=== PATIENT | male | born 1985 ===

== ENCOUNTER 2023-04-13 11:09 | Outpatient (REF) | payer MEDICAID, SELFPAY ==
[2023-04-13 14:58] LABS: Anion Gap 12 (12-20); Blood Urea Nitrogen 10 mg/dL (9-16); Calcium 9.6 mg/dL (8.4-10.2); Carbon Dioxide 25 mmol/L (22-29); Chloride 107 mmol/L (96-108); Estimated Glomerular Filt Rate > 60; Glucose Random 87 mg/dL (60-115); Potassium 4.4 mmol/L (3.3-5.1); Sodium 140 mmol/L (135-145)
== END 2023-04-13 11:10 | disposition home or self-care (01) ==
LOC: HO.HHCL 11:09
PROVIDERS: Visit Provider Internal Medicine Geriatric Medicine
DX: M89.8X8 Other specified disorders of bone, other site (principal); R51.9 Headache, unspecified; G89.29 Other chronic pain
CPT/HCPCS: 36415; 80048

== ENCOUNTER 2023-04-29 01:29 | Emergency (ER) | payer MEDICAID, SELFPAY ==
[2023-04-29 01:46] VITALS: BP 137/80; PULSE 85; RESP 16; TEMP 37.1; O2SAT 97; BMI 34.5
[2023-04-29 03:08] VITALS: BP 144/96; PULSE 71; RESP 16; TEMP 36.8; O2SAT 98
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
[2023-04-29 03:33] LABS: Appearance Urine Clear; Color Urine Yellow; Glucose Urine UA Negative (Negative); Leukocyte Esterase Urine Negative (Negative); Nitrite Urine Negative (Negative); PH 6.5 (5.0-9.0); UMIC TRIGGER UACC YES; Urine Blood Trace (Negative); Urine Ketones Trace mg/dL (Negative); Urine Protein Negative (Neg-Trace)
--- NOTE | 2023-04-29 03:34 | MHC.EDTECH ---
this pct just assumed care of pt vitals sign taken ,rsv/flu/covid swab collected and sent to lab ,
[2023-04-29 03:38] LABS: Bacteria Urine None Seen (None Seen); Hyaline Casts Urine 0-2 /LPF (0-2); Squamous Epithelial Cell Urine 0-2 /HPF (0-2); WBC Urine 0-5 /HPF (0-5)
[2023-04-29 04:17] LABS: Influenza A PCR NEGATIVE (Negative); Influenza B PCR NEGATIVE (Negative); Resp Syncy Virus RNA Qual PCR NEGATIVE (Negative); SARS COV2 PCR INHOUSE NEGATIVE (Negative)
[2023-04-29 04:36] VITALS: BP 157/96; PULSE 74; RESP 16; TEMP 36.3; O2SAT 98
[2023-04-29] MEDS: Amoxicillin/Potassium Clav 875 MG TABLET PO (04:41)
[2023-04-29] MEDS: Butalb/Acetamin/Caff 50/325/40 TABLET 1 TAB PO (04:41)
[2023-04-29 09:32] LABS: CT PCR NOT DETECTED (Not Detect.); NG PCR NOT DETECTED (Not Detect.)
== END 2023-04-29 04:54 | disposition home or self-care (01) ==
PROVIDERS: Emergency Provider Internal Medicine
DX: R51.9 Headache, unspecified (principal); R30.0 Dysuria; J32.9 Chronic sinusitis, unspecified; Z20.822 Contact with and (suspected) exposure to COVID-19; Z20.828 Contact with and (suspected) exposure to other viral communicable diseases
CPT/HCPCS: 0241U; 0353U; 81001; 99283

== ENCOUNTER 2023-06-23 08:47 | Outpatient (REF) | payer MEDICAID, SELFPAY ==
--- NOTE | ~2023-06-23 | CT_ITS ---
EXAMINATION: CT HEAD WITH CONTRAST CLINICAL INFORMATION: Mass growing on top of skull. Daily headaches. COMPARISON: None. TECHNIQUE: Contiguous axial imaging was performed from the skullbase to vertex following the intravenous administration of 85 mL Omnipaque 350. This CT examination was performed using dose optimization techniques as appropriate, variously including the following: *Automated exposure control *Adjustment of mA and/or kV according to patient size (this includes techniques or standardized protocols for targeted exams where dose is matched to indication/reason for exam; i.e. extremities or head) *Use of iterative reconstruction technique DLP: 1030 mGy-cm. FINDINGS: At the site of a presumed palpable mass in the midline vertex of the head, there is an encapsulated fatty mass measuring 3 cm TV by 0.6 cm CC by 2.9 cm AP. No enhancing soft tissue component is seen within the lesion. The underlying calvarium is normal. There is no evidence of acute intracranial hemorrhage or territorial infarction. No abnormal mass effect or midline shift is seen. Hogan to white matter differentiation is well preserved. No extra-axial fluid collections are identified. There is no abnormal enhancement. The ventricles are normal in size. There is no abnormal attenuation within the brain parenchyma. The osseous structures are normal. The mastoid air cells and visualized portions of the paranasal sinuses are well aerated. CT/CT head/brain w IV con IMPRESSION: No acute intracranial pathology. Approximate 3 x 0.6 x 2.9 cm encapsulated fatty lesion at the midline vertex in the scalp soft tissues, most indicative for benign lipoma. If the lesion continues to increase in size or pain develops at this site, further workup would be indicated on clinical basis.
[2023-06-23] MEDS: iohexoL 350 MG/ML 100 ML INFUS..BTL IV (10:17)
== END 2023-06-23 08:48 | disposition home or self-care (01) ==
LOC: HO.CT 08:47
PROVIDERS: Visit Provider Internal Medicine Geriatric Medicine
DX: M89.8X8 Other specified disorders of bone, other site (principal)
CPT/HCPCS: 70460; Q9967

== ENCOUNTER 2023-09-23 01:48 | Emergency (ER) | payer OTHER, SELFPAY ==
--- NOTE | ~2023-09-23 | XR_ITS ---
EXAMINATION: XR CHEST CLINICAL INFORMATION: Chest pain. COMPARISON: None available. TECHNIQUE: Frontal view of the chest was obtained. FINDINGS: No significant abnormality is noted involving the heart, lungs, mediastinum, bony thorax or soft tissues. XR/XR chest 1V IMPRESSION: Unremarkable examination.
--- NOTE | 2023-09-23 01:52 | ECG_ITS ---
Test Reason : CP Blood Pressure : / mmHG Vent. Rate : 088 BPM Atrial Rate : 088 BPM P-R Int : 154 ms QRS Dur : 084 ms QT Int : 324 ms P-R-T Axes : 044 -13 016 degrees QTc Int : 392 ms Normal sinus rhythm Normal ECG No previous ECGs available Referred By: Anette Joiner Electronically Signed By:NICOLE CANTU
[2023-09-23 01:53] VITALS: BP 135/76; PULSE 96; RESP 18; TEMP 36.8; O2SAT 96; BMI 36.9
[2023-09-23 02:14] LABS: Basophils Percent Auto 0.3 % (0-2); Eosinophils Absolute Auto 0.1 X10*3/uL (0.0-0.4); Eosinophils Percent Auto 0.7 % (0-4); Hematocrit 42.8 % (42.0-52.0); Hemoglobin 14.2 g/dl (14.0-18.0); Imm Gran Pct Auto 0.9 % (0.0-0.4); Lymphocytes Absolute Auto 3.3 X10*3/uL (1.2-4.9); Lymphocytes Percent Auto 28.2 % (20-40); MANUAL DIFF FLAG NO; Mean Corpuscular HGB Conc 33.2 g/dl (31.0-36.0); Mean Corpuscular Volume 87.5 fL (80.0-98.0); Mean Platelet Volume 9.7 fL (9.4-12.4); Monocytes Absolute Auto 0.8 X10*3/uL (0.1-1.2); Monocytes Percent Auto 7.2 % (2-11); Neutrophils Absolute Auto 7.3 x10*3/uL (2.0-8.3); Neutrophils Percent Auto 62.7 % (45-73); Platelet Count 265 X10*3/uL (160-400); Red Blood Count 4.89 X10*6/uL (4.60-5.80); Red Cell Distribution Width 14.5 % (11.0-16.0); White Blood Count 11.7 X10*3/uL (4.8-10.8)
[2023-09-23 02:30] LABS: Alanine Aminotransferase 23 U/L (0-40); Albumin Level 4.4 g/dL (3.5-5.0); Alkaline Phosphatase 76 U/L (39-117); Anion Gap 15 (12-20); Aspartate Amino Transferase 18 U/L (5-37); Bilirubin Direct 0.1 mg/dL (0.0-0.5); Bilirubin Total 0.5 mg/dL (0.0-1.0); Blood Urea Nitrogen 10 mg/dL (9-16); Calcium 10.1 mg/dL (8.4-10.2); Carbon Dioxide 25 mmol/L (22-29); Chloride 106 mmol/L (96-108); Creatinine Clr Calc Pharmacy 132.3; Estimated Glomerular Filt Rate > 60; Glucose Random 89 mg/dL (60-115); Sodium 142 mmol/L (135-145); Total Protein 8.1 g/dL (6.5-8.0)
[2023-09-23 02:37] LABS: Troponin-I High Sensitivity 4.8 ng/L (<3.5-35.0)
[2023-09-23 02:52] VITALS: BP 140/80; PULSE 92; RESP 18; TEMP 36.9; O2SAT 98
[2023-09-23 03:44] LABS: Ethanol < 10 mg/dL
--- NOTE | 2023-09-23 05:55 | ED_ITS ---
HPI - Psych General Chief Complaint: Psychiatric Symptoms Stated Complaint: chest pain, diabetic, ran out of meds Time Seen by Provider: 09/23/23 05:49 Source: patient Mode of arrival: ambulatory Limitations: no limitations History of Present Illness HPI Narrative: Patient comes to the emergency room complaining of 3 days of chest pressure and cough. Denies chest pain, abdominal pain, nausea vomiting diarrhea or fever. However, the main reason the patient came to the emergency room today is because he is feeling suicidal, states that he has been contemplating hanging himself. Patient states he takes medications for anxiety and depression as prescribed. Patient denies hurting himself prior to arrival, denies HI Related Data Home Medications Medication Instructions Recorded Confirmed albuterol sulfate 90 mcg/actuation 2 puff inhalation Q6H PRN wheezing 09/23/23 09/23/23 aerosol inhaler (Ventolin HFA) clonazepam 1 mg tablet 1 mg PO BID PRN Anxiety 09/23/23 09/23/23 enalapril maleate 10 mg tablet 10 mg PO QAM 09/23/23 09/23/23 phenytoin sodium extended 100 mg 100 mg PO TID 09/23/23 09/23/23 capsule quetiapine 200 mg tablet 200 mg PO BEDTIME 09/23/23 09/23/23 Allergies Allergy/AdvReac Type Severity Reaction Status Date / Time No Known Allergies Allergy Verified 09/23/23 01:53 Review of Systems 2 Review of Systems: Constitutional : No Weight loss, No Fever, No Chills, No Night Sweats, No Fatigue, No Malaise ENT/Mouth : No Hearing loss, No Ear Pain, No Nasal Congestion, No Sinus Pain, No Hoarseness, No sore throat, No Rhinorrhea, No Swallowing Difficulty Eyes: No Eye Pain, No Swelling, No Redness, No Foreign Body, No Discharge, No Vision Changes Cardiovascular : Complaining of chest pressure for 3 days, no pain, No SOB, No Dyspnea on Exertion, No Orthopnea, No Edema, No Palpitations Respiratory : No Cough, No Sputum, No Wheezing, No Smoke Exposure, No Dyspnea Gastrointestinal : No Nausea, No Vomiting, No Diarrhea, No Constipation, No abdominal Pain, No Hematochezia, No Melena Genitourinary : no irregular bleeding, No Dysuria, No Urinary Frequency, No Hematuria, No Urinary Incontinence, No Urgency, No Flank Pain, No Urinary Flow Changes, No Hesitancy Musculoskeletal : No joint pain, No Myalgias, No Joint Swelling Skin : No Skin Lesions, No rash Neuro : No Weakness, No Numbness, No Paresthesias, No Loss of Consciousness, No Dizziness, No Headache Psych : Patient complaining of anxiety, depression and SI Heme/Lymph: No Bruising, No Bleeding,No Lymphadenopathy Endocrine : No Polyuria, No Polydipsia, No Temperature Intolerance PMFSH Past Medical History Onset Date is defined in the Problem List Problems that require an onset date and time if occurred within 24 hrs of arrival to the ED Aortic Dissection and Rupture; Neurologic impairment; Cardiopulmonary Arrest; Endotracheal Intubation; Insertion or Replacement of Mechanical Circulatory Assist Device Medical History Asthma Anxiety and depression Social History Social History (System 09/11/23 @ 10:56 by Zelda Herrera) Alcohol intake: never Smoked in Last 30 Days: Yes Use of substances other than those prescribed or required for medical reasons: Yes Substance Use Type: Marijuana Advance Directives: No Advance Directives Information Provided: Yes Physical Exam 2 Vital Signs: Vital Signs: Last Vital Signs Temp 98.5 F 09/23/23 02:52 Pulse 92 09/23/23 02:52 Resp 18 09/23/23 02:52 BP 140/80 H 09/23/23 02:52 Pulse Ox 98 09/23/23 02:52 O2 Del Method Room Air 09/23/23 02:52 BMI result Body Mass Index 36.9 Const: Other: Appearance: Alert. Oriented X3. No acute distress. Eyes: Pupils equal, round and reactive to light. ENT: Pharynx normal. Neck: Normal inspection. Neck supple. No lymph nodes noted. No crepitus CVS: Normal heart rate and rhythm. Pulses normal. Normal S1 and S2 Respiratory: No respiratory distress. Breath sounds normal. No Wheezing. No rales Abdomen: Soft and nontender. No rigidity. No distention. Skin: Skin warm and dry. Normal skin color. Normal skin turgor. Extremities: No lower extremity edema. No Lacerations. No Rash Neuro: Oriented X 3. No motor deficit. No sensory deficit. Moving all extremities. No slurred speech. CN 2 through 12 grossly intact Psych: calm, cooperative, normal affect Medical Decision Making Medical Decision Making MDM Narrative: -my interpretation of labs: Hematology chemistry, troponin within normal limits. -my interpretation of EKG: Normal sinus rhythm, heart rate 88, no ST segment depression or elevation, no T-wave inversion, QTC 392. -my interpretation of chest x-ray: No acute abnormality, no infiltrate -patient is on a Section 12 -care team consult pending -physician observation started at 06:00 -sign-out given to my colleague Dr. Richter Differential Diagnosis Differential Diagnoses: The differential diagnosis associated with the presentation includes (ACS, COVID, viral URI, pneumonia, anxiety, depression) Admission/Observation Consideration of admission/observation: Escalation of care including admission/observation considered (Patient is on a Section 12, waiting to be seen by the care team to determine disposition) Lab Data 09/23/23 02:09 09/23/23 02:09 Labs: Lab Results 09/23/23 09/23/23 Range/Units 02:09 03:23 WBC 11.7 H (4.8-10.8) X10*3/uL RBC 4.89 (4.60-5.80) X10*6/uL Hgb 14.2 (14.0-18.0) g/dl Hct 42.8 (42.0-52.0) % MCV 87.5 (80.0-98.0) fL MCH 29.0 (27.0-33.0) pg MCHC 33.2 (31.0-36.0) g/dl RDW 14.5 (11.0-16.0) % Plt Count 265 (160-400) X10*3/uL MPV 9.7 (9.4-12.4) fL Immature Gran % (Auto) 0.9 H (0.0-0.4) % Neut % (Auto) 62.7 (45-73) % Lymph % (Auto) 28.2 (20-40) % [place] % (Auto) 7.2 (2-11) % Eos % (Auto) 0.7 (0-4) % Baso % (Auto) 0.3 (0-2) % Lymph # (Auto) 3.3 (1.2-4.9) X10*3/uL [place] # (Auto) 0.8 (0.1-1.2) X10*3/uL Eos # (Auto) 0.1 (0.0-0.4) X10*3/uL Baso # (Auto) 0.0 (0.0-0.2) X10*3/uL Abs Immat Gran (auto) 0.10 H (0.00-0.03) X10*3/uL Absolute Neuts (auto) 7.3 (2.0-8.3) x10*3/uL Absolute Nucleated RBC 0.000 (0.0-0.012) X10*3/uL Nucleated RBC % (auto) 0.0 (0.0-0.2) /100WBC Sodium 142 (135-145) mmol/L Potassium 4.0 (3.3-5.1) mmol/L Chloride 106 (96-108) mmol/L Carbon Dioxide 25 (22-29) mmol/L Anion Gap 15 (12-20) BUN 10 (9-16) mg/dL Creatinine 0.87 (0.5-1.4) mg/dL Estim Creat Clear Calc 132.3 Estimated GFR > 60 Random Glucose 89 (60-115) mg/dL Calcium 10.1 (8.4-10.2) mg/dL Total Bilirubin 0.5 (0.0-1.0) mg/dL Direct Bilirubin 0.1 (0.0-0.5) mg/dL AST 18 (5-37) U/L ALT 23 (0-40) U/L Alkaline Phosphatase 76 (39-117) U/L Troponin I High Sens 4.8 (<3.5-35.0) ng/L Total Protein 8.1 H (6.5-8.0) g/dL Albumin 4.4 (3.5-5.0) g/dL Ethyl Alcohol < 10 mg/dL Critical Care Time Critical Care Time Critical Care Time: Yes Total Critical Care Time: 30 Attestation: I have personally provided critical care time. Time includes review of lab data, radiology results, discussion with consultants, and monitoring for potential decompensation. Intervention performed as documented. Discharge Plan Discharge Clinical Impression: Atypical chest pain, Anxiety and depression, Suicidal ideation Patient Disposition: Still a Patient Prescriptions: No Action enalapril maleate 10 mg tablet 10 mg PO QAM quetiapine 200 mg tablet 200 mg PO BEDTIME clonazepam 1 mg tablet 1 mg PO BID PRN (Reason: Anxiety) phenytoin sodium extended 100 mg capsule 100 mg PO TID albuterol sulfate [Ventolin HFA] 90 mcg/actuation HFA aerosol inhaler 2 puff INHALATION Q6H PRN (Reason: wheezing) Interventions: [place]-Suicide Risk Severity Scale Last Done: 09/23/23 02:52
[2023-09-23 06:00] VITALS: BP 103/60; PULSE 77; RESP 16; TEMP 36.9; O2SAT 94
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
[2023-09-23 09:19] LABS: Appearance Urine Clear; Color Urine Yellow; Glucose Urine UA Negative (Negative); Leukocyte Esterase Urine Negative (Negative); Nitrite Urine Negative (Negative); Specific Gravity - Urine 1.025 (1.005-1.025); UMIC TRIGGER UACC YES; Urine Blood Small (1+) (Negative); Urine Ketones Trace mg/dL (Negative); Urine Protein Trace mg/dL (Neg-Trace)
[2023-09-23 09:24] LABS: Amphetamine Screen Urine Not Detected (Not Detect); Bacteria Urine None Seen (None Seen); Barbiturates, Urine Not Detected (Not Detect); Benzodiazepines Screen Urine Not Detected (Not Detect); Cannabinoid Screen Urine POSITIVE (Not Detect); Cocaine Screen Urine Not Detected (Not Detect); Fentanyl, urine Not Detected (Not Detect); Hyaline Casts Urine 0-2 /LPF (0-2); Opiate Screen Urine Not Detected (Not Detect); Phencyclidine Screen Urine Not Detected (Not Detect); Squamous Epithelial Cell Urine 0-2 /HPF (0-2); WBC Urine 0-5 /HPF (0-5)
[2023-09-23 09:33] LABS: COVID-19 Test Negative (Negative); IDNOW Serial# 08D9AD1C
[2023-09-23] MEDS: Acetaminophen 325 MG TABLET 975 MG PO (11:01)
--- NOTE | 2023-09-23 11:11 | PC.NURSE ---
provided with toast, crackers, and adeel javier. patient observer remains at bedside. care team currently evaluating patient. medicated per the [facility] for headache.
--- NOTE | 2023-09-23 11:49 | MHC.CARE ---
Patient evaluated by the CARE Team, disposition [facility] referral. Provider, RITO iWllis updated and in agreement with plan.
[2023-09-23 12:00] VITALS: BP 136/74; PULSE 76; RESP 16; TEMP 36.6; O2SAT 95
[2023-09-23] MEDS: Phenytoin Sodium Extended 100 MG CAPSULE PO ×2 (14:04→21:39)
[2023-09-23] MEDS: Nicotine 21 MG PATCH.TD24 TRANSDERMA (14:04)
[2023-09-23] MEDS: clonazePAM 1 MG TABLET PO (15:48)
[2023-09-23 15:55] VITALS: BP 143/92; PULSE 84; RESP 16; TEMP 36.3; O2SAT 96
--- NOTE | 2023-09-23 18:22 | PC.NURSE ---
plan for respite from care team, continues to deny si/hi. patient observer remains in place
--- NOTE | 2023-09-23 20:49 | PC.NURSE ---
pt has remained calm/cooperative this shift. per care team pt cleared to leave if chooses to. pt denies si/hi. pt states he'd like to leave. Dr. Solorio made aware.
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
[2023-09-23] MEDS: QUEtiapine Fumarate 200 MG TABLET PO (21:39)
[2023-09-24 02:00] VITALS: BP 156/94; PULSE 90; RESP 16; TEMP 37.2; O2SAT 98
--- NOTE | 2023-09-24 02:14 | PC.NURSE ---
Pt moved to pod at 0215. Pt calm and cooperative, offering no complaints to this RN. Now laying down, respirations even and unlabored
--- NOTE | 2023-09-24 06:22 | PC.NURSE ---
Assumed care of patient at 03:00 am, patient asleep, reparations even unlabored, RR 16, no apparent distress. Plan of care ongoing.
--- NOTE | 2023-09-24 07:16 | PC.NURSE ---
This RN assumed care of patient, respirations equal and unlabored, patient appears to be in no sign of distress
--- NOTE | 2023-09-24 09:03 | MHC.CARE ---
Referral made to [facility] and activated, [facility] reports referral is currently under review.
--- NOTE | 2023-09-24 09:39 | PC.NURSE ---
patient is awake making a phone call, respirations equal and unlabored. patient able to make needs known, no apparent signs of distress
[2023-09-24] MEDS: Phenytoin Sodium Extended 100 MG CAPSULE PO (09:53)
[2023-09-24] MEDS: Enalapril Maleate 10 MG TABLET PO (10:21)
--- NOTE | 2023-09-24 10:52 | PC.NURSE ---
patient given clothes back, dressed appropriatly, ambulated off of unit with steady gait
== END 2023-09-24 10:51 | disposition home or self-care (01) ==
PROVIDERS: Emergency Medicine; Emergency Provider Emergency Medicine Emergency Medical Services; PCP Nurse Practitioner Primary Care
DX: F32.A Depression, unspecified (principal); R45.851 Suicidal ideations; F41.9 Anxiety disorder, unspecified; R07.89 Other chest pain; Z11.52 Encounter for screening for COVID-19; Z79.899 Other long term (current) drug therapy
CPT/HCPCS: 36415; 71045; 80048; 80076; 80307; 81001; 84484; 85025; 87635; 93005; 99285; S9485

== ENCOUNTER → 2023-09-23 01:52 | Outpatient (BNV) | payer MEDICAID, SELFPAY | PROVIDERS: Emergency Provider Emergency Medicine; PCP Nurse Practitioner Primary Care; Visit Provider Internal Medicine | DX: R07.9 Chest pain, unspecified (principal) | CPT/HCPCS: 93010 ==

== ENCOUNTER 2023-10-12 13:31 | Outpatient (AMB) | payer MEDICAID, SELFPAY ==
--- NOTE | 2023-10-12 14:05 | A.OFFVIS_ITS ---
Intake Intake Visit Reasons: soft tissue mass of head Intake Note: Patient is seen in office for evaluation and treatment of a soft tissue mass of the head. Pt c/o: reports chronic headaches, reports blurry vision. Check Clerk Required: Yes Check Clerk Language: Director Of Marketing Communications Name: Julienne Information Interpreted: non-clinical & clinical Accompanied by: Self / Same As Patient Allergies No Known Allergies Allergy (Verified 09/23/23 01:53) Medication List - Last Reconciled 10/12/23 by Matteo Smith MD albuterol sulfate 90 mcg/actuation (Ventolin HFA) 2 puffs inhalation Q6H PRN clonazepam 1 mg PO BID PRN enalapril maleate 10 mg PO QAM phenytoin sodium extended 100 mg PO TID quetiapine 200 mg PO BEDTIME HPI soft tissue mass of head HPI Details 38-year-old male referred for a mass on his head. He describes having this lump on his scalp for over a year now. He says that this is bothering him and seems to have increased in size. He wants this removed He denies any drainage. He has known epilepsy, asthma and anxiety. [facility] Medical History (Updated 10/12/23 @ 16:23 by Matteo Smith MD) Seizure disorder Scalp mass Asthma Anxiety and depression Social History Alcohol intake: never Substance Use Type: Marijuana Review of Systems Const Denies chills and Denies fever(s) Card Denies chest pain, Denies dyspnea and Denies dyspnea on exertion Resp Denies cough, Denies dyspnea and Denies dyspnea on exertion GI Denies hematochezia and Denies change in bowel habits Denies hematuria and Denies difficulty urinating Musc Denies back pain and Denies limited range of motion Neuro Details: Has known epilepsy; last episode was over 3 weeks ago described as drooling and rolling of eyeballs Denies focal weakness and Denies convulsions Psych Denies depression and Denies mood swings Physical Exam Const General: comfortable and no acute distress Orientation/consciousness: patient oriented x3 HEENT Other: Frontal area of the scalp is note of a 2.6 cm mass, soft, appears to be subcutaneous, not well-defined Neck Neck: Yes no lymphadenopathy Resp Auscultation: clear to auscultation bilaterally Cardio Rhythm: regular rhythm GI Palpation (GI): Soft to palpation, nontender and no guarding Neuro General: patient oriented x3 Assessment & Plan Assessment & Plan (1) Scalp mass: Code(s): R22.0 - Localized swelling, mass and lump, head Plan: He has this scalp mass on the frontal area as described above. He wants to proceed with excision. He wants this says under anesthesia as he says he has severe anxiety. I explained the technique of excision under anesthesia. I reviewed the risks including but not limited to bleeding, infections, as well as the benefits and alternatives. He understands and wants to proceed. Coding Level of Care Code New Pt Level 3 (60432) Diagnoses Scalp mass R22.0
== END 2023-10-12 16:10 | disposition home or self-care (01) ==
PROVIDERS: PCP Nurse Practitioner Primary Care; Referring Provider Nurse Practitioner Primary Care; Visit Provider Surgery
DX: R22.0 Localized swelling, mass and lump, head (principal)
CPT/HCPCS: 99203

== ENCOUNTER → 2023-10-12 13:31 | Outpatient (BNVA) | payer MEDICAID, SELFPAY | PROVIDERS: PCP Nurse Practitioner Primary Care; Referring Provider Nurse Practitioner Primary Care; Visit Provider Surgery | DX: R22.0 Localized swelling, mass and lump, head (principal) | CPT/HCPCS: 99202 ==